=== PATIENT | female | born 1950 | race Caucasian/White ===

== ENCOUNTER 2017-03-24 13:00 | Outpatient (RCR) | payer MEDICARE, BC | END 2017-03-30 | disposition home or self-care (01) | LOC: PTY 13:00 | PROVIDERS: ATTEND Internal Medicine | DX: M48.56XS Collapsed vertebra, not elsewhere classified, lumbar region, sequela of fracture (principal) | CPT/HCPCS: 97110; 97140; 97162; G8978; G8979 ==

== ENCOUNTER 2017-04-28 13:30 | Outpatient (RCR) | payer MEDICARE, BC | END 2017-04-29 | disposition home or self-care (01) | LOC: PTY 13:30 | PROVIDERS: ATTEND Internal Medicine | DX: M48.56XS Collapsed vertebra, not elsewhere classified, lumbar region, sequela of fracture (principal) | CPT/HCPCS: 97110; G0283 ==

== ENCOUNTER 2017-05-12 13:04 | Outpatient (RCR) | payer MEDICARE, BC | END 2017-05-30 | disposition home or self-care (01) | LOC: PTY 13:04 | PROVIDERS: ATTEND Internal Medicine | DX: M48.56XS Collapsed vertebra, not elsewhere classified, lumbar region, sequela of fracture (principal) | CPT/HCPCS: 97110; G0283 ==

== ENCOUNTER 2017-06-09 13:00 | Outpatient (RCR) | payer MEDICARE, BC | END 2017-06-30 | disposition home or self-care (01) | LOC: PTY 13:00 | PROVIDERS: ATTEND Internal Medicine | DX: M48.56XS Collapsed vertebra, not elsewhere classified, lumbar region, sequela of fracture (principal) | CPT/HCPCS: 97110; 97140; G0283; G8978; G8979; G8980 ==